=== PATIENT | female | born 1955 | race Caucasian/White ===

== ENCOUNTER 2016-09-30 09:15 | Day surgery (SDC) | payer MEDICARE ==
[2016-09-23 15:23] VITALS: BP 138/84
[~2016-09-30] VITALS: Ht 167.6 cm; Wt 92.5 kg
[~2016-09-30 09:15] MED LIST: ALBU6.7H INH; BUDE10.2 INH; CALC1TAB3 PO; DIPH25TA12 PO; MULT-717 PO; TIOT18CA INH
[2016-09-30] MEDS ORDERED: LACTATED RINGERS 1,000 ML IV SCH (09:57)
[2016-09-30] MEDS ORDERED: LIDOCAINE 1%, 2ML SQ PRN (10:00)
[2016-09-30] MEDS ORDERED: LIDOCAINE 1%, 2ML ONE (10:04)
[2016-09-30] MEDS ORDERED: PROPOFOL 10 MG/ML, 20ML ONE (10:57)
== END 2016-09-30 12:40 ==
LOC: EDSEX → OUT 09:15
PROVIDERS: ATTEND Specialist
DX: K62.1 Rectal polyp (principal); K57.30 Diverticulosis of large intestine without perforation or abscess without bleeding; K64.8 Other hemorrhoids; K64.4 Residual hemorrhoidal skin tags; J44.9 Chronic obstructive pulmonary disease, unspecified; E11.9 Type 2 diabetes mellitus without complications; Z90.49 Acquired absence of other specified parts of digestive tract; Z83.3 Family history of diabetes mellitus; Z82.49 Family history of ischemic heart disease and other diseases of the circulatory system; Z80.9 Family history of malignant neoplasm, unspecified; Z87.891 Personal history of nicotine dependence; Z72.89 Other problems related to lifestyle
CPT/HCPCS: 45380; 88305; J2704; J3490; J7120